=== PATIENT | male | born 1950 | race Caucasian/White ===

== ENCOUNTER 2017-06-08 20:25 | Emergency (ER) | payer MEDICARE ==
[2008-11-03 16:48] VITALS: BP 115/74
[~2017-06-08] VITALS: Ht 165.1 cm; Wt 76.4 kg
[~2017-06-08 20:25] MED LIST: ALEVE 220MG220 MG PO; ATIVAN 1MG T1 MG/TAB PO; BACTRIM DS 8001 TAB PO; CIPRO 500MG TA500 MG PO; FLOMAX 0.40.4 MG/CAP PO; HYTRIN 1MG C1 MG/CAP PO; KLONOPIN 0.5MG0.5 MG PO; NORCO 325 MG-51 TAB PO; NORCO 325 MG-7.1 TAB PO; NORVASC 5MG5 MG/TAB PO; PEPCID 20MG TAB20 MG PO; PERCOCET 325 MG1 TA2 PO; PRIL40; SMZ/TMPDS PO; ULTRAM 50MG TAB50 MG PO; VICODIN 5/5001 UDTAB PO; ZANAFLEX 4MG TAB4 MG PO
[2017-06-08 20:38] VITALS: TEMP 98.3
[2017-06-08 21:12] LABS: HEMOGLOBIN 15.4 g/dl (13.5-18.0); MEAN CELL VOLUME 97 fl (80.0-100.0); MEAN CORPUSCULAR HEMOGLOBIN 33 pg (27.0-31.0); MEAN CORPUSCULAR HGB CONC 34 g/dl (33.0-37.0); MEAN PLATELET VOLUME 8.6 fl (7.4-10.4); PLATELET COUNT 401 K/mm3 (130-400); RED BLOOD COUNT 4.62 M/mm3 (4.20-5.60); REDCELL DISTRIBUTION WIDTH-CV 13.9 % (11.5-14.5)
[2017-06-08 21:21] LABS: ALANINE AMINOTRANSFERASE 51 U/L (21-72); ALBUMIN 3.7 gm/dL (3.5-5.0); ALKALINE PHOSPHATASE 104 U/L (50-136); ANION GAP 7 mmol/L (7-16); AST,SGOT 26 U/L (15-37); BILIRUBIN,TOTAL 0.5 mg/dL (0.0-1.0); BLOOD UREA NITROGEN 24 mg/dL (9-20); CALCIUM 8.9 mg/dL (8.4-10.2); CARBON DIOXIDE 26 mmol/L (22-30); CHLORIDE 107 mmol/L (98-107); CREATININE, serum 1.11 mg/dL (0.66-1.25); GLUCOSE 104 mg/dL (74-106); POTASSIUM 3.9 mmol/L (3.4-5.0); SODIUM 140 mmol/L (137-145); TOTAL PROTEIN 6.8 gm/dL (6.4-8.2)
[2017-06-08 21:31] LABS: C-REACTIVE PROTEIN < 0.5 mg/dL (0.0-0.9)
[2017-06-08 21:41] LABS: BAND 3 % (0-10); LYMPHOCYTE 42 % (20.0-51.0); NEUTROPHILS 48 % (42.0-75.2); PLATELET ESTIMATE INCREASED (NORMAL)
[2017-06-08 21:43] LABS: ERYTHROCYTE SEDIMENTATION RATE 6 mm/hr (0-30)
[2017-06-08] MEDS ORDERED: NORCO 325 MG-51 TAB PO (23:38)
[2017-06-08 23:58] VITALS: BP 147/98; PULSE 91
== END 2017-06-09 00:05 | disposition home or self-care (01) ==
LOC: COL.ER 20:25
PROVIDERS: Emergency Medicine
DX: M54.41 Lumbago with sciatica, right side (principal); Z90.89 Acquired absence of other organs; I10 Essential (primary) hypertension; Z90.49 Acquired absence of other specified parts of digestive tract; J44.9 Chronic obstructive pulmonary disease, unspecified
CPT/HCPCS: J1170; J1885; J2405; J7030

== ENCOUNTER → 2017-08-22 | Emergency (ER) | payer MEDICARE ==
[~2017-08-22] VITALS: Wt 73.6 kg
[~2017-08-22] MED LIST changes: +ASPIRIN 32325 MG/TAB PO; +BLOOD PRESSURE MED PO; +LIPITOR 10MG10 MG PO; +NEURONTIN100 MG/CAP PO; +PLAVIX 75MG TAB75 MG PO
[2017-08-22 13:28] LABS: BASO # 0.1 (0.0-0.2); BASO % 0.4 % (0.0-2.0); EOS # 0.1 (0.0-0.7); EOS % 0.9 % (0-4.0); GRAN # 8.7 (1.4-6.5); GRAN % 75.4 % (42.2-75.2); HEMATOCRIT 42.6 % (42.0-52.0); HEMOGLOBIN 14.6 g/dl (13.5-18.0); LYMPH # 2.1 (1.2-3.4); LYMPH % 18.4 % (20.0-51.0); MEAN CELL VOLUME 95 fl (80.0-100.0); MEAN CORPUSCULAR HEMOGLOBIN 33 pg (27.0-31.0); MEAN CORPUSCULAR HGB CONC 34 g/dl (33.0-37.0); MEAN PLATELET VOLUME 8.6 fl (7.4-10.4); MONO # 0.5 (0.1-0.6); MONO % 4.5 % (1.7-9.3); PLATELET COUNT 388 K/mm3 (130-400); RED BLOOD COUNT 4.49 M/mm3 (4.20-5.60)
[2017-08-22 13:38] LABS: PROTHROMBIN TIME 11.6 SECONDS (9.7-12.8)
[2017-08-22 13:43] LABS: PARTIAL THROMBOPLASTIN TIME 28.8 SECONDS (26.0-37.0)
[2017-08-22 13:52] LABS: ALANINE AMINOTRANSFERASE 23 U/L (21-72); ALBUMIN 4.3 gm/dL (3.5-5.0); ALKALINE PHOSPHATASE 106 U/L (50-136); ANION GAP 16 mmol/L (7-16); AST,SGOT 25 U/L (15-37); BILIRUBIN,TOTAL 0.4 mg/dL (0.0-1.0); BLOOD UREA NITROGEN 22 mg/dL (9-20); CALCIUM 9.5 mg/dL (8.4-10.2); CARBON DIOXIDE 21 mmol/L (22-30); CHLORIDE 106 mmol/L (98-107); CREATININE, serum 1.95 mg/dL (0.66-1.25); GLUCOSE 108 mg/dL (74-106); POTASSIUM 4.3 mmol/L (3.4-5.0); SODIUM 143 mmol/L (137-145); TOTAL PROTEIN 8.1 gm/dL (6.4-8.2)
[2017-08-22 14:08] LABS: TROPONIN-I < 0.012 ng/mL (0.000-0.034)
[2017-08-22 16:15] VITALS: TEMP 97.1
[2017-08-22 17:33] VITALS: BP 124/86; PULSE 78
== END ==
LOC: COL.ER 12:23
PROVIDERS: Emergency Medicine
DX: I63.8 Other cerebral infarction (principal); I12.9 Hypertensive chronic kidney disease with stage 1 through stage 4 chronic kidney disease, or unspecified chronic kidney disease; N18.9 Chronic kidney disease, unspecified; E78.5 Hyperlipidemia, unspecified; J44.9 Chronic obstructive pulmonary disease, unspecified; N40.0 Benign prostatic hyperplasia without lower urinary tract symptoms; F17.210 Nicotine dependence, cigarettes, uncomplicated; Z86.73 Personal history of transient ischemic attack (TIA), and cerebral infarction without residual deficits; Z90.49 Acquired absence of other specified parts of digestive tract; Z90.89 Acquired absence of other organs; Z98.890 Other specified postprocedural states; Z79.02 Long term (current) use of antithrombotics/antiplatelets
CPT/HCPCS: J2060; J2270; J2997

== ENCOUNTER 2018-05-18 21:15 | Emergency (ER) | payer MEDICARE ==
[2008-11-03 16:48] VITALS: BP 115/74
[~2018-05-18] VITALS: Ht 165.1 cm; Wt 70.5 kg
[2018-05-18 21:18] VITALS: TEMP 98.1
[2018-05-18 22:10] LABS: BASO % 0.1 % (0.0-2.0); GRAN % 74.7 % (42.2-75.2); HEMATOCRIT 46.4 % (42.0-52.0); HEMOGLOBIN 15.5 g/dl (13.5-18.0); LYMPH % 14.7 % (20.0-51.0); MEAN CELL VOLUME 97 fl (80.0-100.0); MEAN CORPUSCULAR HEMOGLOBIN 32 pg (27.0-31.0); MEAN CORPUSCULAR HGB CONC 33 g/dl (33.0-37.0); MEAN PLATELET VOLUME 8.6 fl (7.4-10.4); MONO # 1.8 (0.1-0.6); MONO % 8.9 % (1.7-9.3); PLATELET COUNT 401 K/mm3 (130-400); RED BLOOD COUNT 4.78 M/mm3 (4.20-5.60); REDCELL DISTRIBUTION WIDTH-CV 14.6 % (11.5-14.5)
[2018-05-18 22:22] LABS: ALANINE AMINOTRANSFERASE 39 U/L (21-72); ALKALINE PHOSPHATASE 69 U/L (50-136); ANION GAP 6 mmol/L (7-16); AST,SGOT 39 U/L (15-37); BILIRUBIN,TOTAL 0.4 mg/dL (0.0-1.0); BLOOD UREA NITROGEN 30 mg/dL (9-20); CALCIUM 9.2 mg/dL (8.4-10.2); CARBON DIOXIDE 27 mmol/L (22-30); CHLORIDE 107 mmol/L (98-107); CREATININE, serum 1.49 mg/dL (0.66-1.25); GLUCOSE 84 mg/dL (74-106); LIPASE 205 U/L (23-300); POTASSIUM 5.1 mmol/L (3.4-5.0); SODIUM 140 mmol/L (137-145); TOTAL PROTEIN 7.3 gm/dL (6.4-8.2)
[2018-05-18 22:26] LABS: C-REACTIVE PROTEIN < 0.5 mg/dL (0.0-0.9)
[2018-05-18 22:31] LABS: TROPONIN-I 0.024 ng/mL (0.000-0.034)
[2018-05-18 22:42] LABS: COLLECTION METHOD CLEAN CATCH
[2018-05-18 22:54] LABS: MUCOUS Present /lpf; PH 6 (5-8); SQUAMOUS EPITHELIAL 0-2 /hpf; URINE APPEARANCE Clear; URINE BACTERIA None Seen /hpf; URINE BILIRUBIN Negative (NEGATIVE); URINE BLOOD 2+ (NEGATIVE); URINE COLOR Yellow; URINE GLUCOSE Negative (NEGATIVE); URINE KETONE Negative (NEGATIVE); URINE LEUKOCYTE ESTERASE Negative (NEGATIVE); URINE NITRATE Negative (NEGATIVE); URINE PROTEIN(semi-quant) Negative (NEGATIVE); URINE UROBILINOGEN Negative (NEGATIVE)
[2018-05-18 23:46] VITALS: BP 134/76; PULSE 75
== END 2018-05-19 | disposition left against medical advice (07) ==
LOC: COL.ER 21:15
PROVIDERS: Family Medicine
DX: M54.10 Radiculopathy, site unspecified (principal); M21.372 Foot drop, left foot; J44.9 Chronic obstructive pulmonary disease, unspecified; I10 Essential (primary) hypertension; F17.210 Nicotine dependence, cigarettes, uncomplicated; Z79.02 Long term (current) use of antithrombotics/antiplatelets
CPT/HCPCS: J1170; J2550; J7030

== ENCOUNTER → 2018-12-31 | Outpatient (CLI) | payer MEDICARE | LOC: ZCOL.LAB 17:49 | DX: Z01.89 Encounter for other specified special examinations (principal) ==

== ENCOUNTER 2020-06-04 23:27 | Emergency (ER) | payer MEDICARE, MEDICAID ==
[2008-11-03 16:48] VITALS: BP 115/74
[~2020-06-04] VITALS: Ht 165.1 cm; Wt 63.6 kg
[2020-06-04 23:35] VITALS: TEMP 97.8
[2020-06-05 00:05] LABS: BASO # 0.1 (0.0-0.2); BASO % 0.5 % (0.0-2.0); EOS # 0.1 (0.0-0.7); EOS % 1.1 % (0-4.0); GRAN # 8.1 (1.4-6.5); GRAN % 66.3 % (42.2-75.2); HEMATOCRIT 41.9 % (42.0-52.0); HEMOGLOBIN 14.1 g/dl (13.5-18.0); LYMPH % 24.2 % (20.0-51.0); MEAN CELL VOLUME 94 fl (80.0-100.0); MEAN CORPUSCULAR HEMOGLOBIN 32 pg (27.0-31.0); MEAN CORPUSCULAR HGB CONC 34 g/dl (33.0-37.0); MEAN PLATELET VOLUME 8.4 fl (7.4-10.4); MONO # 0.9 (0.1-0.6); MONO % 7.4 % (1.7-9.3); PLATELET COUNT 412 K/mm3 (130-400); RED BLOOD COUNT 4.44 M/mm3 (4.20-5.60); REDCELL DISTRIBUTION WIDTH-CV 13.8 % (11.5-14.5)
[2020-06-05 00:15] LABS: ALBUMIN 4.1 gm/dL (3.5-5.0); BILIRUBIN,TOTAL 0.4 mg/dL (0.0-1.0); CALCIUM 9.3 mg/dL (8.4-10.2); CREATININE, serum 1.62 (0.66-1.25); POTASSIUM 4.5 mmol/L (3.4-5.0); TOTAL PROTEIN 7.3 gm/dL (6.4-8.2)
[2020-06-05 02:37] LABS: PROTHROMBIN TIME 11.2 SECONDS (9.7-12.8)
[2020-06-05 02:39] LABS: PARTIAL THROMBOPLASTIN TIME 34.8 SECONDS (26.0-37.0)
[2020-06-05 02:50] LABS: COLLECTION METHOD CLEAN CATCH
[2020-06-05 02:58] LABS: MUCOUS Present /lpf; PH 5 (5-8); SQUAMOUS EPITHELIAL None Seen /hpf; URINE APPEARANCE Clear; URINE BACTERIA None Seen /hpf; URINE BILIRUBIN Negative (NEGATIVE); URINE BLOOD 1+ (NEGATIVE); URINE COLOR Yellow; URINE GLUCOSE Negative (NEGATIVE); URINE KETONE Negative (NEGATIVE); URINE LEUKOCYTE ESTERASE Negative (NEGATIVE); URINE NITRATE Negative (NEGATIVE); URINE PROTEIN(semi-quant) Negative (NEGATIVE); URINE UROBILINOGEN Negative (NEGATIVE); URINE WBC 0-2 /hpf
[2020-06-05 03:35] VITALS: BP 129/78; PULSE 71
== END 2020-06-05 03:35 | disposition home or self-care (01) ==
LOC: COL.ER 23:27
PROVIDERS: Emergency Medicine
DX: N41.9 Inflammatory disease of prostate, unspecified (principal); N39.0 Urinary tract infection, site not specified; Z86.73 Personal history of transient ischemic attack (TIA), and cerebral infarction without residual deficits; Z88.0 Allergy status to penicillin; Z88.1 Allergy status to other antibiotic agents; Z79.02 Long term (current) use of antithrombotics/antiplatelets
CPT/HCPCS: J2270; J2405; J3010

== ENCOUNTER 2020-06-12 22:41 | Emergency (ER) | payer MEDICARE, MEDICAID ==
[2008-11-03 16:48] VITALS: BP 115/74
[~2020-06-12] VITALS: Ht 165.1 cm; Wt 63.6 kg
[2020-06-12 23:09] VITALS: TEMP 98.8
[2020-06-12] MEDS ORDERED: NORCO 325 MG-51 TAB PO (23:35)
[2020-06-13 01:05] VITALS: BP 125/79; PULSE 65
== END 2020-06-13 01:05 | disposition home or self-care (01) ==
LOC: COL.ER 22:41
DX: N41.0 Acute prostatitis (principal); F17.200 Nicotine dependence, unspecified, uncomplicated; Z86.73 Personal history of transient ischemic attack (TIA), and cerebral infarction without residual deficits; Z90.89 Acquired absence of other organs; Z88.0 Allergy status to penicillin; Z88.1 Allergy status to other antibiotic agents; Z88.8 Allergy status to other drugs, medicaments and biological substances
CPT/HCPCS: J1170

== ENCOUNTER 2021-01-07 05:12 | Emergency (ER) | payer MEDICARE, MEDICAID ==
[~2021-01-07] VITALS: Ht 175.3 cm; Wt 68.2 kg
[2021-01-07 05:14] VITALS: TEMP 98.4
[2021-01-07] MEDS ORDERED: NORCO 325 MG-51 TAB PO (05:26)
[2021-01-07 05:35] VITALS: BP 115/89; PULSE 92
== END 2021-01-07 05:35 | disposition home or self-care (01) ==
LOC: COL.ER 05:12
DX: M54.5 Low back pain (principal); M54.6 Pain in thoracic spine; I10 Essential (primary) hypertension; E78.5 Hyperlipidemia, unspecified; F17.210 Nicotine dependence, cigarettes, uncomplicated; Z86.73 Personal history of transient ischemic attack (TIA), and cerebral infarction without residual deficits; Z79.02 Long term (current) use of antithrombotics/antiplatelets; Z79.899 Other long term (current) drug therapy

== ENCOUNTER 2021-03-13 12:20 | Emergency (ER) | payer MEDICARE, MEDICAID ==
[~2021-03-13] VITALS: Ht 162.6 cm; Wt 75.0 kg
[2021-03-13 12:25] VITALS: TEMP 98.2
[2021-03-13] MEDS ORDERED: NORCO 325 MG-51 TAB PO (13:55)
[2021-03-13 14:15] VITALS: BP 145/91; PULSE 96
== END 2021-03-13 14:15 | disposition home or self-care (01) ==
LOC: COL.ER 12:20
DX: G89.29 Other chronic pain (principal); M54.50 Low back pain, unspecified; R53.81 Other malaise; I10 Essential (primary) hypertension; F17.210 Nicotine dependence, cigarettes, uncomplicated; Z86.73 Personal history of transient ischemic attack (TIA), and cerebral infarction without residual deficits; Z88.8 Allergy status to other drugs, medicaments and biological substances; Z79.02 Long term (current) use of antithrombotics/antiplatelets; Z79.899 Other long term (current) drug therapy
CPT/HCPCS: J2270

== ENCOUNTER 2021-03-28 18:39 | Emergency (ER) | payer MEDICARE, MEDICAID ==
[~2021-03-28] VITALS: Ht 165.1 cm; Wt 75.5 kg
[2021-03-28 20:15] VITALS: BP 115/78; PULSE 83; TEMP 98.7
== END 2021-03-28 20:15 | disposition home or self-care (01) ==
LOC: COL.ER 18:39
DX: M54.59 Other low back pain (principal); G89.29 Other chronic pain; F17.210 Nicotine dependence, cigarettes, uncomplicated; Z79.899 Other long term (current) drug therapy
CPT/HCPCS: J1885

== ENCOUNTER 2021-05-21 19:32 | Emergency (ER) | payer MEDICARE, MEDICAID ==
[~2021-05-21] VITALS: Ht 175.3 cm; Wt 76.4 kg
[2021-05-21 19:33] VITALS: TEMP 98.6
[2021-05-21 20:33] LABS: BASO # 0.1 K/mm3 (0.0-0.2); BASO % 0.8 % (0.0-2.0); EOS # 0.5 K/mm3 (0.0-0.7); EOS % 4.2 % (0.0-4.0); GRAN # 6.2 K/mm3 (1.4-6.5); GRAN % 53.7 % (42.2-75.2); HEMATOCRIT 40.6 % (42.0-52.0); HEMOGLOBIN 13.9 g/dl (13.5-18.0); LYMPH # 3.6 K/mm3 (1.2-3.4); LYMPH % 31.8 % (20.0-51.0); MEAN CELL VOLUME 97 fl (80.0-100.0); MEAN CORPUSCULAR HEMOGLOBIN 33 pg (27-31); MEAN CORPUSCULAR HGB CONC 34 g/dl (33.0-37.0); MEAN PLATELET VOLUME 8.9 fl (7.4-10.4); MONO # 1.1 K/mm3 (0.1-0.6); MONO % 9.2 % (1.7-9.3); PLATELET COUNT 333 K/mm3 (130-400)
[2021-05-21 20:54] LABS: ALANINE AMINOTRANSFERASE 11 U/L (0-55); ALBUMIN 3.7 gm/dL (3.4-4.8); ALKALINE PHOSPHATASE 87 U/L (40-150); ANION GAP 14 mmol/L (7-16); AST,SGOT 13 U/L (5-34); BILIRUBIN,TOTAL 0.5 mg/dL (0.2-1.2); BLOOD UREA NITROGEN 31 mg/dL (8-26); CALCIUM 8.8 mg/dL (8.4-10.2); CARBON DIOXIDE 19 mmol/L (23-31); CHLORIDE 111 mmol/L (98-107); CREATININE, serum 1.68 mg/dL (0.72-1.25); GLUCOSE 96 mg/dL (70-99); POTASSIUM 4.5 mmol/L (3.5-4.5); SODIUM 144 mmol/L (136-145); TOTAL PROTEIN 7.3 gm/dL (6.2-8.1)
[2021-05-21 21:01] LABS: TROPONIN-I < 0.010 ng/mL (0.00-0.033)
[2021-05-21] MEDS ORDERED: NORCO 325 MG-51 TAB PO (22:21)
[2021-05-22 00:20] VITALS: BP 130/61; PULSE 80
== END 2021-05-22 00:14 | disposition home or self-care (01) ==
LOC: COL.ER 19:32
PROVIDERS: Personal Emergency Response Attendant
DX: R41.82 Altered mental status, unspecified (principal); R07.9 Chest pain, unspecified; J44.9 Chronic obstructive pulmonary disease, unspecified; F17.200 Nicotine dependence, unspecified, uncomplicated; Z86.73 Personal history of transient ischemic attack (TIA), and cerebral infarction without residual deficits; Z79.02 Long term (current) use of antithrombotics/antiplatelets
CPT/HCPCS: J2270; J2405; J7030; Q9967

== ENCOUNTER → 2021-06-06 | Outpatient (CLI) | payer MEDICARE, MEDICAID | LOC: COL.RAD 07:55 → COL.CARD 10:00 | DX: I63.9 Cerebral infarction, unspecified (principal); M47.816 Spondylosis without myelopathy or radiculopathy, lumbar region; F80.81 Childhood onset fluency disorder; M54.41 Lumbago with sciatica, right side ==

== ENCOUNTER → 2021-06-18 | Outpatient (CLI) | payer MEDICARE, MEDICAID | LOC: MHCPAIN 13:10 | DX: M54.50 Low back pain, unspecified (principal); M53.3 Sacrococcygeal disorders, not elsewhere classified; M47.816 Spondylosis without myelopathy or radiculopathy, lumbar region; M48.04 Spinal stenosis, thoracic region ==

== ENCOUNTER → 2021-07-16 | Outpatient (CLI) | payer MEDICARE | LOC: MHCPAIN 10:42 | DX: M53.3 Sacrococcygeal disorders, not elsewhere classified (principal) | CPT/HCPCS: G0260; J1040; Q9967 ==

== ENCOUNTER 2021-07-29 15:51 | Emergency (ER) | payer MEDICARE ==
[~2021-07-29] VITALS: Ht 165.1 cm; Wt 75.0 kg
[2021-07-29 16:05] VITALS: TEMP 97.9
[2021-07-29 16:32] LABS: BASO # 0.1 K/mm3 (0.0-0.2); BASO % 0.4 % (0.0-2.0); EOS # 0.2 K/mm3 (0.0-0.7); EOS % 1.1 % (0.0-4.0); GRAN # 12.9 K/mm3 (1.4-6.5); GRAN % 73.2 % (42.2-75.2); HEMATOCRIT 40.4 % (42.0-52.0); HEMOGLOBIN 13.2 g/dl (13.5-18.0); LYMPH # 3.1 K/mm3 (1.2-3.4); LYMPH % 17.5 % (20.0-51.0); MEAN CELL VOLUME 100 fl (80.0-100.0); MEAN CORPUSCULAR HEMOGLOBIN 33 pg (27-31); MEAN CORPUSCULAR HGB CONC 33 g/dl (33.0-37.0); MEAN PLATELET VOLUME 8.8 fl (7.4-10.4); MONO # 1.2 K/mm3 (0.1-0.6); MONO % 6.6 % (1.7-9.3); PLATELET COUNT 396 K/mm3 (130-400); RED BLOOD COUNT 4.05 M/mm3 (4.20-5.60); REDCELL DISTRIBUTION WIDTH-CV 16.4 % (11.5-14.5)
[2021-07-29 16:50] LABS: ALBUMIN 3.6 gm/dL (3.4-4.8); BILIRUBIN,TOTAL 0.4 mg/dL (0.2-1.2); C-REACTIVE PROTEIN 0.29 mg/dL (0.00-0.50); CALCIUM 8.7 mg/dL (8.4-10.2); CREATININE, serum 1.43 mg/dL (0.72-1.25); TOTAL PROTEIN 7.1 gm/dL (6.2-8.1)
[2021-07-29 17:16] LABS: COLLECTION METHOD CLEAN CATCH
[2021-07-29 17:25] LABS: PH 5 (5-8); SQUAMOUS EPITHELIAL None Seen /hpf (0-10); URINE APPEARANCE Clear (CLEAR/HAZY); URINE BACTERIA None Seen /hpf (NONE SEEN); URINE BILIRUBIN Negative (NEGATIVE); URINE BLOOD Negative (NEGATIVE); URINE COLOR Yellow (YELLOW); URINE GLUCOSE Negative (NEGATIVE); URINE KETONE Negative (NEGATIVE); URINE LEUKOCYTE ESTERASE Negative (NEGATIVE); URINE NITRATE Negative (NEGATIVE); URINE PROTEIN(semi-quant) Negative (NEGATIVE); URINE UROBILINOGEN Negative (NEGATIVE)
[2021-07-29] MEDS ORDERED: NORCO 325 MG-51 TAB PO (18:54)
[2021-07-29] MEDS ORDERED: ATIVAN 0.50.5 MG/TAB PO (18:54)
[2021-07-29 19:23] VITALS: BP 142/100; PULSE 91
== END 2021-07-29 19:23 | disposition home or self-care (01) ==
LOC: COL.ER 15:51
PROVIDERS: Emergency Medicine
DX: R10.9 Unspecified abdominal pain (principal); M62.838 Other muscle spasm; D72.829 Elevated white blood cell count, unspecified
CPT/HCPCS: J2060; J2270; J7030; Q9967

== ENCOUNTER 2024-01-11 19:18 | Emergency (ER) | payer MEDICARE, MEDICAID ==
[~2024-01-11] VITALS: Ht 165.1 cm; Wt 68.2 kg
[~2024-01-11 19:18] MED LIST changes: +ABILIFY 10MG TA10 MG PO; +ASPIRIN 81M81 MG/TA2 PO; +ATARAX50 MG PO; +ATIVAN 0.50.5 MG/TAB PO; +CYMBALTA 30MG30 MG PO; +CYMBALTA 60MG60 MG PO; +KLONOPIN 1MG1 MG PO; +PROAIR HFA0.09 MG/AC IH; +ZOCOR 20MG20 MG PO
[2024-01-11 19:31] VITALS: TEMP 98
[2024-01-11] MEDS ORDERED: Lidocaine 4% Topical Patch TP ONE (20:00)
[2024-01-11] MEDS ORDERED: HYDROmorphone 0.5 MG/0.5 ML SYRINGE IM ONE (21:15)
[2024-01-11] MEDS ORDERED: ZOVIRAX800 MG PO (21:25)
[2024-01-11] MEDS ORDERED: LIDODERM 5% PATC1 EA TP (21:25)
[2024-01-11] MEDS ORDERED: Home HYDROcodone/Acetaminophen 5/325 MG #4 TABS/PACK PO ONE (21:30)
[2024-01-11 21:52] VITALS: BP 120/88; PULSE 83
== END 2024-01-11 21:52 | disposition home or self-care (01) ==
LOC: COL.ER 19:18
DX: M54.6 Pain in thoracic spine (principal); F17.200 Nicotine dependence, unspecified, uncomplicated; Z88.0 Allergy status to penicillin; Z88.1 Allergy status to other antibiotic agents
CPT/HCPCS: J1170